=== PATIENT | female | born 1985 | race Caucasian/White ===

== ENCOUNTER 2017-01-13 16:17 | Emergency (ER) | payer BC, OTHER ==
[~2017-01-13] VITALS: Ht 160 cm; Wt 62.6 kg
--- NOTE | ~2017-01-13 | EKG ---
[place] [address] [email or web address] [employer] [place] [address] ELECTROCARDIOGRAM REPORT Name: CARMITA PEÑA Room #: [facility]ENTER[facility]ine#: [id number] Admission: 01/13/17 Attend Phys: Discharge: 01/13/17 Date of : 85 Report #: [id number] THIS REPORT FOR: //name// [facility] ED Test Date: 2017-01-13 Test Time: 16:58:36 Pat Name: CARMITA PEÑA Department: Room: Gender: F [employer]: alejo : 1985 Requested By: Estefani Dailey Order Number: [id number] MD: Suleiman Valenzuela Measurements Intervals [place] Rate: 93 P: 71 SD: 129 QRS: 46 QRSD: 80 T: -74 QT: 319 QTc: 397 Interpretive Statements Sinus rhythm Anteroseptal infarct, old Nonspecific T wave abnormality No previous ECG available for comparison Electronically Signed On 01-14-2017 8:39:45 CDT by Suleiman Valenzuela [email or web address] <ELECTRONICALLY SIGNED> By: Suleiman Valenzuela MD, [facility] 01/14/17 0839 [id number] 1658 Suleiman Valenzuela MD, FACC /EPI
[~2017-01-13 16:17] MED LIST: BIRTH CONTROL PILL PO; CEFDINIR300 MG PO; ERRIN0.35 MG PO; L-LYSINE500 M1 PO; LEXAPRO 10 MG T10 M1 PO; MILK THISTLE140 M1 PO; MULTI VITAMIN1 EACH PO; SERTRALINE HCL25 M1 PO; TRINATE TABLET1 TAB PO; WOMEN'S DAILY1 EAC1 PO; ZYRTEC10 M2 PO
[2017-01-13] MEDS ORDERED: PROAIR HFA8.5 GM (16:32)
[2017-01-13] MEDS ORDERED: FLONASE 0.05%50 MCG NASAL (16:32)
[2017-01-13] MEDS ORDERED: GYNE-LOTRIMIN-745 GM VG (16:33)
[2017-01-13] MEDS ORDERED: PROPRANOLOL 1010 MG PO (16:34)
[2017-01-13] MEDS ORDERED: IMITREX5 MG NS (16:36)
[2017-01-13 17:00] LABS: ABSOLUTE NEUTROPHILS 5.3 thou/uL (1.4-8.2); BASOPHILS 1.4 % (0.0-2.0); EOSINOPHILS 6.7 % (0.0-3.0); HEMATOCRIT 46.1 % (37.0-47.0); HEMOGLOBIN 16.3 gm/dL (12.0-15.0); LYMPHOCYTES 29.8 % (24.0-44.0); MCH 30.8 pg (26.0-34.0); MCHC 35.4 g/dL (28.0-37.0); MONOCYTES 8.3 % (1.0-8.0); PLATELET COUNT 181 thou/uL (150-400); POLYS 53.8 % (36.0-66.0); RDW 12.4 % (10.5-14.5); WBC 9.9 thou/uL (4.0-11.0)
[2017-01-13 17:04] LABS: MANUAL DIFF NO
[2017-01-13 17:10] LABS: ANION GAP 12 mmol/L (7-16); BUN 12 mg/dL (7-18); CALCIUM 9.5 mg/dL (8.5-10.1); CHLORIDE 103 mmol/L (98-107); CO2 24 mmol/L (21-32); CREATININE 0.6 mg/dL (0.6-1.0); GLUCOSE 100 mg/dL (74-106); POTASSIUM 3.9 mmol/L (3.5-5.1); SODIUM 139 mmol/L (136-145)
[2017-01-13 17:20] LABS: ALBUMIN 4.2 g/dL (3.4-5.0); ALKALINE PHOSPHATASE 81 U/L (46-116); SGOT 17 U/L (15-37); SGPT 17 U/L (30-65); TOTAL BILIRUBIN 0.5 mg/dL (<0.1-1.0); TOTAL PROTEIN 8.4 g/dL (6.4-8.2); TROPONIN-I < 0.04 ng/mL (<0.04-0.07)
[2017-01-13] MEDS ORDERED: PREDNISONE 20 M20 MG PO (19:14)
[2017-01-13] MEDS ORDERED: ALBUTEROL2.5 MG/31 INH (19:14)
== END 2017-01-13 19:30 | disposition home or self-care (01) ==
LOC: ER 16:17
PROVIDERS: Physician Assistant
DX: J45.901 Unspecified asthma with (acute) exacerbation (principal); R09.02 Hypoxemia; J20.8 Acute bronchitis due to other specified organisms; F32.9 Major depressive disorder, single episode, unspecified; F41.9 Anxiety disorder, unspecified; K21.9 Gastro-esophageal reflux disease without esophagitis; Z86.2 Personal history of diseases of the blood and blood-forming organs and certain disorders involving the immune mechanism